=== PATIENT | female | born 1970 | race Caucasian/White ===

== ENCOUNTER → 2023-11-29 15:32 | Outpatient (REF) | payer OTHER, SELFPAY | LOC: HWWDC 15:32 | PROVIDERS: ATTENDING PHYSICIAN Student in an Organized Health Care Education/Training Program | DX: Z12.31 Encounter for screening mammogram for malignant neoplasm of breast (principal) | CPT/HCPCS: 77063; 77067 ==

== ENCOUNTER 2024-06-11 10:57 | Emergency (ER) | payer OTHER, SELFPAY ==
[2024-06-11 11:02] VITALS: BP 167/90
--- NOTE | 2024-06-11 12:21 | ED.SKININJ ---
HPI-Injury
General
Chief Complaint: Eye Problems
Source: patient
Exam Limitations: none
Time Seen by Provider: 06/11/24 11:50
History of Present Illness-Injury
Initial Injury comments:
53-year-old female presents with onset of bilateral eye discomfort and blurry vision with redness starting yesterday. She notes a runny nose. She denies any injury to the eye. She has been rubbing the eyes. She was seen at the urgent care and
sent here for further evaluation.
Phy Exam
Physical Exam
Physical Exam:
General: Well-appearing female no acute respiratory distress
HEENT: Normocephalic bilateral conjunctive inflamed sclera injected pupils equal round reactive to light extract motions are intact. The eyes are photosensitive. Eyes were examined with fluorescein stain and a slit lamp. Anterior chambers are
clear. There is a mild amount of chemosis on the right side laterally.
Skin: Surrounding skin is without erythema
Extremities: No cyanosis
Course
Vital Signs
Initial and Last Documented VS:
Initial Vital Signs
Temp Pulse BP Pulse Ox
97.7 F 80 167/90 100
06/11/24 11:02 06/11/24 11:02 06/11/24 11:02 06/11/24 11:02
Last Documented Vital Signs
Temp Pulse BP Pulse Ox
97.7 F 80 167/90 100
06/11/24 11:02 06/11/24 11:02 06/11/24 11:02 06/11/24 11:02
MDM/Problems Addressed
Differential Diagnosis Includes:
Bilateral eye discomfort with blurry vision. Consider conjunctivitis versus iritis. This is bilateral involvement exam most consistent with conjunctivitis. Discomfort was helped with topical anesthetics. Will start patient on antibiotic drops
and have her follow-up with ophthalmology.
*Critical Care Note
Total Time (30-74mins, 75-104mins- exclusive of procedures): Not Applicable
ED Attending Note
-
Portions of this chart may have been created with voice recognition software.� Occasional wrong word or��sound alike� substitutions may have occurred due to the inherent limitations of voice recognition software.
Discharge Plan
Departure
Patient Disposition: Home (Routine Discharge)
Date of Disposition: 06/11/24
Time of Disposition: 12:24
Patient with high blood pressure during this ER visit?: No
Discharge Problem:
Conjunctivitis
Instructions: Conjunctivitis (Noninfectious Pinkeye)
Referrals:
Macario Gupta MD [Active] -
Rochelle Chua MD [Family Provider] -
Activity Restrictions/Additional Instructions:
Use cool compresses to the eye. Use antibiotic drops 1 drop both eyes every 4 hours. Follow-up with ophthalmology. Return if worse otherwise
Interventions
Interventions:
*Risk Screen - Suicide Last Done: 06/11/24 11:04
*General Assessment Last Done: 06/11/24 11:04
*Neglect/Abuse Screening Last Done: 06/11/24 11:04
Discharge Date and Time
Print Language: SINHALA
[2024-06-11] MEDS: GENOPTIC 0.3% EYE DROPS 1 DROP OPHTH (12:53)
== END 2024-06-11 13:03 | disposition home or self-care (01) ==
LOC: EMR 10:57
PROVIDERS: EMERGENCY PHYSICIAN Emergency Medicine; FAMILY PHYSICIAN Student in an Organized Health Care Education/Training Program
DX: H10.9 Unspecified conjunctivitis (principal)
CPT/HCPCS: 99283

== ENCOUNTER → 2024-12-01 15:11 | Outpatient (REF) | payer OTHER, SELFPAY | LOC: HWWDC 15:11 | PROVIDERS: ATTENDING PHYSICIAN Student in an Organized Health Care Education/Training Program | DX: Z12.31 Encounter for screening mammogram for malignant neoplasm of breast (principal) | CPT/HCPCS: 77063; 77067 ==